=== PATIENT | female | born 1990 | race African-American/Black ===

== ENCOUNTER 2020-01-25 23:31 | Emergency (ER) | payer SELFPAY ==
[~2020-01-25] VITALS: Ht 157.5 cm; Wt 80.0 kg
[2020-01-25] MEDS ORDERED: KETOROLAC 60MG/2ML VIAL IM STA (23:58)
[2020-01-25] MEDS ORDERED: HYDROCODONE/ACETAMINOPHEN 5/325MG TABLET PO STA (23:58)
[2020-01-26] MEDS ORDERED: LIDOCAINE HCL/PF 1% 10 MG/ML 5ML VIAL IJ SCH (00:51)
[2020-01-26] MEDS ORDERED: MORPHINE SULFATE 4 MG/ML CPJ (NOT FOR IM USE) IV STA (01:09)
[2020-01-26] MEDS ORDERED: HYDROCODONE/ACETAMINOPHEN 5/325MG TABLET PO STA (03:39)
[2020-01-26 03:52] VITALS: BP 113/89
== END 2020-01-26 04:18 | disposition home or self-care (01) ==
LOC: ER 23:31
DX: S52.592A Other fractures of lower end of left radius, initial encounter for closed fracture (principal); S52.692A Other fracture of lower end of left ulna, initial encounter for closed fracture; W01.0XXA Fall on same level from slipping, tripping and stumbling without subsequent striking against object, initial encounter; Y93.89 Activity, other specified; Y92.9 Unspecified place or not applicable
CPT/HCPCS: 25605; 73090; 73110; 96372; 96374; 99284; J1885; J2270; J3490; A4565